=== PATIENT | female | born 2000 | race American Indian/Alaskan Native ===

== ENCOUNTER 2020-11-10 16:38 | Outpatient (CLI) | payer MEDICAID ==
[2020-11-10 19:03] VITALS: BP 118/71
[2020-11-10] MEDS ORDERED: LACTATED RINGERS 500 ML IV ONE (19:16)
[2020-11-10] MEDS ORDERED: ONDANSETRON 4 MG/2 ML INJ IV ONE (19:27)
[2020-11-10 19:59] LABS: Amorphous Crystals,Urine Few; Bilirubin,Urine NEG (Negative); Blood,Urine NEG (Negative); Color,Urine Yellow (Yellow); Mucus,Urine FEW /HPF; Protein,Urine <15 mg/dL mg/dL (Negative)
[2020-11-10] MEDS ORDERED: LACTATED RINGERS 1,000 ML IV ONE (20:18)
[2020-11-10] MEDS ORDERED: TERBUTALINE 1 MG/1 ML INJ SUB-Q ONE (20:39)
[2020-11-10] MEDS ORDERED: ACETAMINOPHEN 500 MG TAB PO ONE (20:40)
== END 2020-11-10 21:55 | disposition home or self-care (01) ==
LOC: EDSTATUS 18:16 → TRG 18:23 → APU 18:24 → TRG 21:55
PROVIDERS: ATTEND Obstetrics & Gynecology
DX: O26.893 Other specified pregnancy related conditions, third trimester (principal); R10.30 Lower abdominal pain, unspecified; Z3A.31 31 weeks gestation of pregnancy
CPT/HCPCS: 59025; 81001; 96360; J7120